=== PATIENT | female | born 1960 | race Caucasian/White ===

== ENCOUNTER 2017-03-25 10:07 | Outpatient (CLI) | payer MEDICAID ==
[~2017-03-25 10:07] MED LIST: FERRIC CARBOXYMALTOSE 750 MG in NORMAL SALINE 250 ML IV PRN; NORMAL SALINE 250 ML IV PRN
[2017-03-25 10:18] VITALS: BP 129/83
== END 2017-03-25 11:08 | disposition home or self-care (01) ==
LOC: II 10:07 → 5TH 10:12 → II 11:08
PROVIDERS: ATTEND Internal Medicine
PROC: 3E033GC Introduction of Other Therapeutic Substance into Peripheral Vein, Percutaneous Approach (ICD-10-PCS; principal; 2017-03-25)
DX: D50.8 Other iron deficiency anemias (principal); K90.9 Intestinal malabsorption, unspecified
CPT/HCPCS: 96367; J7050; J1439; 96365

== ENCOUNTER 2017-04-01 10:36 | Outpatient (CLI) | payer MEDICAID ==
[2017-04-01 11:09] VITALS: BP 122/73
== END 2017-04-01 11:52 | disposition home or self-care (01) ==
LOC: II 10:36 → 5TH 10:37 → II 11:52
PROVIDERS: ATTEND Internal Medicine
PROC: 3E033GC Introduction of Other Therapeutic Substance into Peripheral Vein, Percutaneous Approach (ICD-10-PCS; principal; 2017-04-01)
DX: D50.8 Other iron deficiency anemias (principal); K90.9 Intestinal malabsorption, unspecified
CPT/HCPCS: 96374; J7050; J1439; 96367; 96375

== ENCOUNTER → 2017-06-22 | Outpatient (CLI) | payer MEDICAID ==
--- NOTE | 2017-06-22 14:36 | RADIOLOGY REPORT (SQ) ---
EXAM DESCRIPTION: CT CHEST WITH COMPLETED DATE/TIME: 06/22/2017 9:21 am REASON FOR STUDY: RECTUM CA (C20) C20 MALIGNANT NEOPLASM OF RECTUM COMPARISON: None. TECHNIQUE: CT scan of the chest performed using helical scanning technique with dynamic intravenous contrast injection. Images reviewed with lung, soft tissue and bone windows. Reconstructed coronal and sagittal MPR images reviewed. All images stored on PACS. All CT scanners at this facility use dose modulation, iterative reconstruction, and/or weight based d osing when appropriate to reduce radiation dose to as low as reasonably achievable (ALARA). [facility]: Dose Right [facility]: CareDose [facility]: Dose Right [facility]: Teradose 4D [facility]: [employer]OWER Mobile CONTRAST TYPE AND DOSE: 56 mL Isovue 370- low osmolar. RENAL FUNCTION: Creatinine 0.6. RADIATION DOSE: . LIMITATIONS: None. FINDINGS: LUNGS AND PLEURA: Irregular nodular mass in the left upper lobe with peripheral nodules. Current transverse measurement 3.0 x 4.4 cm with prior measurement 3.1 x 4.5 cm. Mass in the anterio r right upper lobe currently measures 1.8 x 2.1 cm with prior measurement of 1.8 x 2.1 cm. Multiple additional bilateral pulmonary nodules measuring up to 1 cm. Twill Cutter nodule in the right lowe r lobe (image 98) measures 9 mm with prior measurement of 9 mm. Tw[place] Cutter nodule in the left lo wer lobe (image 91) currently measures 1.2 cm with prior measurement 1.1 cm. Nodule in the superior right lower lobe currently measures 7 mm with prior measurement of 6 mm. No new nodules visualized. No pleural effusion. HILAR AND MEDIASTINAL STRUCTURES: No identified masses or abnormal nodes. HEART AND VASCULAR STRUCTURES: No aneurysm or dissection. No central pulmonary emboli. No pericardi al effusion. HARDWARE: Vascular access port. UPPER ABDOMEN: See separate report of the CT of the abdomen. THYROID AND OTHER SOFT TISSUES: No masses. No adenopathy. BONES: No significant finding. OTHER: No other significant finding. IMPRESSION: AGAIN SEEN ARE MULTIPLE PULMONARY MASSES AND NODULES CONSISTENT WITH METASTASES. GIVEN DIFFERENCE IN TECHNIQUE FROM THE PRIOR OUTSIDE CT, THERE APPEARS TO BE NO SIGNIFICANT CHANGE. TECHNICAL DOCUMENTATION: JOB ID: [id number] Quality ID # [id number]: Final reports with documentation of one or more dose reduction techniques (e.g., Au tomated exposure control, adjustment of the mA and/or kV according to patient size, use of iterative reconstruction technique) 2010 [employer]- All Rights Reserved
--- NOTE | 2017-06-22 14:43 | RADIOLOGY REPORT (SQ) ---
EXAM DESCRIPTION: CT ABD/PELVIS WITH IV ORAL COMPLETED DATE/TIME: 06/22/2017 9:21 am REASON FOR STUDY: RECTUM CA (C20) C20 MALIGNANT NEOPLASM OF RECTUM COMPARISON: CT from outside facility dated 02/09/2017. TECHNIQUE: CT scan of the abdomen and pelvis performed using helical scanning technique with dynamic intravenous contrast injection. No oral contrast. Images reviewed with lung, soft tissue, and bone windows. Reconstructed coronal and sagittal MPR images reviewed. Delayed images for evaluation of the urinary system also acquired. All images stored on PACS. All CT scanners at this facility use dose modulation, iterative reconstruction, and/or weight based d osing when appropriate to reduce radiation dose to as low as reasonably achievable (ALARA). [facility]: Dose Right [facility]: CareDose [facility]: Dose Right [facility]: Teradose 4D [facility]: [employer] CONTRAST TYPE AND DOSE: contrast/concentration: Isovue 370.00 mg/ml; Total Contrast Delivered: 56.0 ml; Total Saline Delivered: 65.0 ml RENAL FUNCTION: Creatinine 0.6. RADIATION DOSE: Up-to-date CT equipment and radiation dose reduction techniques were employed. CTDIv ol: 4.4 - 4.5 mGy. DLP: 635 mGy-cm.. LIMITATIONS: None. FINDINGS: LOWER CHEST: See separate report of the CT of the chest. LIVER: There are now irregular low-attenuation masses in the left lobe of the liver with peripheral e nhancement. These form an overall confluent area measuring 2.3 x 3.6 cm with adjacent 1.1 cm lesion. SPLEEN: Normal size. No focal lesions. PANCREAS: No masses. No significant calcifications. No adjacent inflammation or peripancreatic fluid collections. Pancreatic duct not dilated. GALLBLADDER: No identified stones by CT criteria. No inflammatory changes to suggest cholecystitis. ADRENAL GLANDS: No significant masses or asymmetry. RIGHT KIDNEY AND URETER: No solid masses. No significant calcifications. No hydronephrosis or hyd roureter. LEFT KIDNEY AND URETER: No solid masses. No significant calcifications. No hydronephrosis or hydr oureter. AORTA AND VESSELS: No aneurysm. No dissection. Renal arteries, SMA, celiac without stenosis. RETROPERITONEUM: No retroperitoneal adenopathy, hemorrhage or masses. BOWEL AND PERITONEAL CAVITY: No masses or inflammatory changes. No free fluid or peritoneal masses. APPENDIX: Normal. PELVIS: No mass. No free fluid. Normal bladder. ABDOMINAL WALL: No masses. No hernias. BONES: Irregular destructive sclerotic lesion in the right iliac crest with adjacent soft tissue comp onent in the iliac fossa measuring 1.5 x 3.1 cm. OTHER: No other significant finding. IMPRESSION: INTERVAL DEVELOPMENT OF METASTATIC DISEASE INCLUDING SEVERAL METASTASES IN THE LEFT LOBE OF THE LIVER AND BONY METASTASIS IN THE RIGHT ILIAC CREST. TECHNICAL DOCUMENTATION: JOB ID: [id number] Quality ID # 436: Final reports with documentation of one or more dose reduction techniques (e.g., Au tomated exposure control, adjustment of the mA and/or kV according to patient size, use of iterative reconstruction technique) 2010 [employer]- All Rights Reserved
== END ==
LOC: RAD 08:33
PROVIDERS: ATTEND Internal Medicine
PROC: 4A1HXCZ Monitoring of Products of Conception, Cardiac Rate, External Approach (ICD-10-PCS; principal; 2017-06-22)
DX: O40.3XX0 Polyhydramnios, third trimester, not applicable or unspecified (principal); Z3A.36 36 weeks gestation of pregnancy
CPT/HCPCS: 71260; 74177; 82565

== ENCOUNTER → 2017-08-09 | Outpatient (CLI) | payer MEDICAID ==
--- NOTE | 2017-08-09 17:20 | RADIOLOGY REPORT (SQ) ---
EXAM DESCRIPTION: CTA CHEST COMPLETED DATE/TIME: 08/09/2017 5:04 pm REASON FOR STUDY: SOB,ABDOMEN PAIN R07.9 CHEST PAIN, UNSPECIFIED R10.9 UNSPECIFIED ABDOMINAL PAIN COMPARISON: 06/22/2017. TECHNIQUE: CT scan of the chest performed using helical scanning technique with dynamic intravenous contrast injection. Images reviewed with lung, soft tissue and bone windows. Reconstructed coronal and sagittal MPR images reviewed. Additional 3 dimensional post-processing performed to develop Maximal Intensity Projection images (MN P). All images stored on PACS. All CT scanners at this facility use dose modulation, iterative reconstruction, and/or weight based d osing when appropriate to reduce radiation dose to as low as reasonably achievable (ALARA). [facility]: Dose Right [facility]: CareDose [facility]: Dose Right [facility]: Teradose 4D [facility]: [employer] CONTRAST TYPE AND DOSE: contrast/concentration: Isovue 370.00 mg/ml; Total Contrast Delivered: 57.0 ml; Total Saline Delivered: 102.0 ml Contrast bolus adequate for pulmonary arteries and aorta. RENAL FUNCTION: Creatinine 0.5 RADIATION DOSE: Up-to-date CT equipment and radiation dose reduction techniques were employed. CTDIv ol: 7.7 - 19.7 mGy. DLP: 837 mGy-cm. . LIMITATIONS: None. FINDINGS: LUNGS AND PLEURA: Dominant mass left upper lobe looks relatively stable. Numerous additio nal scattered pulmonary nodules bilaterally, similar distribution and appearance on prior. Largest i n the right upper lobe medially measures just over 2 cm maximally. AORTA AND GREAT VESSELS: No evidence of aortic aneurysm or dissection. Streak artifact from dense ve nous contrast partially obscures the great vessels. HEART: No pericardial effusion. No significant coronary artery calcifications. PULMONARY ARTERIES: No emboli visualized in the main pulmonary arteries or the segmental branches. HILAR AND MEDIASTINAL STRUCTURES: Slight progression and left hilar adenopathy. An enlarged irregula r noted here now measures just over 2 cm with minimal mass effect on the pulmonary vein. HARDWARE: Right port. UPPER ABDOMEN: See separately dictated study from today. THYROID AND OTHER SOFT TISSUES: No masses. No adenopathy. BONES: No destructive lesions. No fracture. 3D MIPS: Confirm above findings. OTHER: No other significant finding. IMPRESSION: 1. No evidence of pulmonary embolus or aortic aneurysm or dissection. 2. Numerous lung masses and nodules with generally similar distribution compared to prior. Minimally progressive mass or enlarged node in the left hilum, however. Mild mass effect on the single remaining left pulmonar y vein. COMMENT: Quality ID # 436: Final reports with documentation of one or more dose reduction techniques (e.g., Automated exposure control, adjustment of the mA and/or kV according to patient size, use of iterative reconstruction technique) TECHNICAL DOCUMENTATION: JOB ID: [id number]- All Rights Reserved
--- NOTE | 2017-08-09 17:27 | RADIOLOGY REPORT (SQ) ---
EXAM DESCRIPTION: CTA ABDOMEN COMPLETED DATE/TIME: 08/09/2017 5:04 pm REASON FOR STUDY: SOB,ABDOMEN PAIN R07.9 CHEST PAIN, UNSPECIFIED R10.9 UNSPECIFIED ABDOMINAL PAIN COMPARISON: 06/22/2017 TECHNIQUE: CT scan of the abdominal aorta extending to the iliac bifurcation performed with intraven ous contrast using helical scanning technique with dynamic intravenous contrast injection. Images rev iewed with lung, soft tissue, and bone windows. Reconstructed coronal and sagittal MPR images reviewe d. All images stored on PACS. Advanced 3D imaging as volume rendering, MIPS, SSD performed? yes All CT scanners at this facility use dose modulation, iterative reconstruction, and/or weight based d osing when appropriate to reduce radiation dose to as low as reasonably achievable (ALARA). [facility]: Dose Right [facility]: CareDose [facility]: Dose Right [facility]: Teradose 4D [facility]: [employer] CONTRAST TYPE AND DOSE: See separate report of the same date. RENAL FUNCTION: See separate report of the same date. LIMITATIONS: None. FINDINGS: AORTA AND VESSELS: No aneurysm. No dissection. Renal arteries, SMA, celiac without stenosi s. LUNG BASES: See separate report of the same date. LIVER: Known liver lesions in the left lobe are not as well visualized due to timing for aortic study , however there is increase in involvement of the left lobe especially along the falciform ligament i n an area previously about 2 cm, now roughly 2.8 x 3.3 cm. SPLEEN: Normal size. No focal lesions. PANCREAS: No masses. No significant calcifications. No adjacent inflammation or peripancreatic fluid collections. Pancreatic duct not dilated. GALLBLADDER: No identified stones by CT criteria. No inflammatory changes to suggest cholecystitis. ADRENAL GLANDS: No significant masses or asymmetry. RIGHT KIDNEY AND URETER: No mass, calculi or urinary tract obstruction. LEFT KIDNEY AND URETER: No mass, calculi or urinary tract obstruction. RETROPERITONEUM: No retroperitoneal adenopathy, hemorrhage or masses. BOWEL AND PERITONEAL CAVITY: No masses or inflammatory changes. No free fluid or peritoneal masses. APPENDIX: Not visualized. ABDOMINAL WALL: Destructive lesion in the right pelvic wall invading the iliac crests is larger on th e current study. 4.7 x 3.1 cm, previously 3.1 x 1.5 cm. BONY STRUCTURES: No significant or acute findings. 3-D IMAGING: Confirms the above findings. OTHER: No other significant finding. IMPRESSION: 1. No evidence of aortic aneurysm. 2. Disease progression in the liver and in the right pelvic wall. TECHNICAL DOCUMENTATION: JOB ID: [id number] Quality ID # 436: Final reports with documentation of one or more dose reduction techniques (e.g., Au tomated exposure control, adjustment of the mA and/or kV according to patient size, use of iterative reconstruction technique) 2010 [employer]- All Rights Reserved
== END ==
LOC: RAD 15:05
PROVIDERS: ATTEND Internal Medicine
DX: R07.9 Chest pain, unspecified (principal); R10.9 Unspecified abdominal pain
CPT/HCPCS: 71275; 74175; 82565